=== PATIENT | female | born 1965 ===

== ENCOUNTER → 2020-12-29 10:37 | Outpatient (BNVA) | payer BC, SELFPAY | PROVIDERS: Family Provider Family Medicine; PCP Family Medicine; Visit Provider Internal Medicine | DX: R53.83 Other fatigue (principal); R63.5 Abnormal weight gain; M25.50 Pain in unspecified joint; Z11.59 Encounter for screening for other viral diseases; R79.82 Elevated C-reactive protein (CRP); Z68.36 Body mass index [BMI] 36.0-36.9, adult; B99.9 Unspecified infectious disease | CPT/HCPCS: 99204 ==

== ENCOUNTER 2020-12-29 12:20 | Outpatient (CLI) | payer BC, SELFPAY ==
--- NOTE | 2020-12-29 12:29 | XR_ITS ---
WS: [email or web address] Left hand, 2 views, 12/29/2020 Clinical Data: B99.9 - Unspecified infectious disease Comparison: None. Findings: No fractures or dislocations are seen. The soft tissues are unremarkable. The joint spaces are normal No periarticular demineralization or calcifications are seen. XR/XR hand LT 2V [id number] Impression: Negative left hand.
--- NOTE | 2020-12-29 12:29 | XR_ITS ---
WS: [email or web address] Right hand, 2 views, 12/29/2020 Clinical Data: B99.9 - Unspecified infectious disease Comparison: None. Findings: No fractures or dislocations are seen. The soft tissues are unremarkable. The joint space s are normal No periarticular demineralization or calcifications are seen XR/XR hand RT 2V [id number] Impression: Negative right hand.
--- NOTE | 2020-12-29 12:29 | XR_ITS ---
WS: [email or web address] Left hip, 2 views, 12/29/2020 Clinical Data: B99.9 - Unspecified infectious disease Comparison: None. Findings: No fractures or dislocations are seen. The left hip joint is intact. There is a small acetabular spur . The left hip shows no erosion, sclerosis, narrowing or cyst formation. The soft tissues are not rem arkable. The adjacent pelvis is normal. XR/XR hip LT 2-3V wo/w pel* [id number] Impression: Minimal osteoarthritis of the left hip. Tonnis classification: grade 1: sclerosis of femoral head and acetabulum or sli ght joint space narrowing or slight lipping at joint margins
--- NOTE | 2020-12-29 12:29 | XR_ITS ---
WS: [email or web address] Lumbar spine, 3 views, 12/29/2020 Clinical Data: B99.9 - Unspecified infectious disease Comparison: None. Findings: No compression fractures or subluxation is seen. No disc space narrowing is seen. The transverse proc esses and SI joints are normal. XR/XR lumbar spine 2-3V* [id number] Impression: Negative lumbar spine.
--- NOTE | 2020-12-29 12:29 | XR_ITS ---
WS: [email or web address] Lateral views of cervical spine in the flexion, extension and neutral positions. 12/29/2020 Clinical Data: B99.9 - Unspecified infectious disease Comparison: Cervical spine, 05/30/2009. Findings: No prevertebral soft tissue swelling is seen. There are no fractures. The C7 spinous process fracture has healed. The disc spaces are normal. No limitation of motion or subluxation on flexion or extensi on is seen. XR/XR cervical spine fl/ex [id number] Impression: 1. Negative lateral cervical spine. 2. Negative for limitation of motion or subluxation on flexion or extension.
--- NOTE | 2020-12-29 12:29 | XR_ITS ---
WS: [email or web address] Right hip, 2 views, 12/29/2020 Clinical Data: B99.9 - Unspecified infectious disease Comparison: None. Findings: No fractures or dislocations are seen. The right hip joint is intact. There is a small acetabular spu r. The right hip shows no erosion, sclerosis, narrowing or cyst formation. The soft tissues are not r emarkable. The adjacent pelvis is normal. XR/XR hip RT 2-3V wo/w pel* [id number] Impression: Minimal osteoarthritis of the right hip. Tonnis classification: grade 1: sclerosis of femoral head and acetabulum or sli ght joint space narrowing or slight lipping at joint margins
[2020-12-29 13:17] LABS: Basophils # 0.1 10^3/uL (0.0-0.1); Eosinophils # 0.1 10^3/uL (0.0-0.8); Eosinophils % 1.8 %; Hematocrit 43.8 % (37.0-47.0); Hemoglobin 14.8 g/dL (11.5-15.3); Lymphocytes # 2.8 10^3/uL (0.8-4.8); Mean Corpuscular HGB Conc 33.8 g/dL (30.0-36.0); Mean Corpuscular Hemoglobin 31.3 pg (28.0-34.0); Mean Corpuscular Volume 92.6 fl (81-99); Mean Platelet Volume 8.2 fL (7.4-10.4); Monocytes # 0.4 10^3/uL (0.2-0.9); Monocytes % 6.2 %; Neutrophils % 51.7 %; Nucleated Red Blood Cells % 0 %; Platelet Count 366 10^3/cmm (130-400); Red Blood Count 4.73 10^6/uL (4.1-5.3); Red Cell Distribution Width 12.9 % (12.1-15.1); White Blood Count 7.2 10^3/uL (4.0-10.0)
[2020-12-29 14:06] LABS: Alanine Aminotransferase 13 U/L (0-33); Albumin Level 4.2 g/dL (3.5-5.2); Alkaline Phosphatase 72 IU/L (35-105); Anion Gap 15.9 (5-19); Aspartate Amino Transferase 14 U/L (0-32); Blood Urea Nitrogen 19 mg/dL (6-20); Calcium 9.1 mg/dL (8.5-10.5); Carbon Dioxide 21 mmol/L (22-29); Chloride 99 mmol/L (98-107); Creatine Phosphokinase 64 U/L (26-192); Globulin 3.1 g/dL (1.3-4.6); Glomerular Filtration Rate 87.2 mL/min (90-130); Glucose 90 mg/dL (65-115); Osmolality Calculated 276 mOsm/kg (285-295); Potassium 3.9 mmol/L (3.5-5.1); Sodium 132 mmol/L (136-145); Thyroid Stimulating Hormone 2.41 uIU/mL (0.27-4.20); Total Bilirubin 0.6 mg/dL (0.15-1.2); Total Protein 7.3 g/dL (6.6-8.7)
[2020-12-29 14:22] LABS: Ferritin 108 ng/mL (15-150); Iron 61 ug/dL (37-145)
[2020-12-29 14:38] LABS: 25 Hydroxy Vitamin D 39 ng/mL (30-100); Vitamin B12 622 pg/mL (232-1245)
[2020-12-29 14:41] LABS: Cortisol Random 11.07 ug/dL (2.47-19.5); Hepatitis B Core AB, Total Non-Reactive (Nonreactive); Hepatitis B Surface Antigen Non-Reactive (Nonreactive); Hepatitis C Virus Antibody Non-Reactive (Nonreactive)
[2021-01-01 11:33] LABS: Erythrocyte Sedimentation Rate 9 mm/hr (0-15)
[2021-01-01 12:33] LABS: COMPLEMENT COMPONENT C3C 175 mg/dL (83-193); COMPLEMENT COMPONENT C4C 43 mg/dL (15-57)
[2021-01-01 12:58] LABS: COMPLEMENT, TOTAL (CH50) >60 U/mL (31-60)
[2021-01-01 13:48] LABS: Cyclic Citrullinated Peptide <16 UNITS
[2021-01-01 14:03] LABS: Immunoglobulin A 148 mg/dL (47-310)
[2021-01-01 14:33] LABS: ANA SCREEN, IFA NEGATIVE (NEGATIVE)
[2021-01-01 15:03] LABS: CENTROMERE B ANTIBODY <1.0 NEG AI (<1.0 NEG); JO-1 ANTIBODY <1.0 NEG AI (<1.0 NEG); RNP ANTIBODY <1.0 NEG AI (<1.0 NEG); SCL-70 ANTIBODY <1.0 NEG AI (<1.0 NEG); SJOGREN'S ANTIBODY (SS-A) <1.0 NEG AI (<1.0 NEG); SM ANTIBODY <1.0 NEG AI (<1.0 NEG); SS-B <1.0 NEG AI (<1.0 NEG)
[2021-01-01 15:56] LABS: THYROID PEROXIDASE ANTIBODIES 1 IU/mL (<9)
[2021-01-03 15:12] LABS: DNA AB (DS) CRITHIDIA,IFA NEGATIVE (NEGATIVE)
== END 2020-12-29 12:21 | disposition home or self-care (01) ==
LOC: LAB 12:28
PROVIDERS: PCP Nurse Practitioner Family; Visit Provider Internal Medicine
DX: B99.9 Unspecified infectious disease (principal); M25.50 Pain in unspecified joint; R53.83 Other fatigue; R63.5 Abnormal weight gain; R79.82 Elevated C-reactive protein (CRP); M16.0 Bilateral primary osteoarthritis of hip
CPT/HCPCS: 36415; 72040; 72100; 73120; 73502; 80053; 82306; 82533; 82550; 82607; 82728; 82784; 83516; 83540; 84443; 85025; 85651; 86160; 86162; 86200; 86235; 86255; 86376; 86431; 86704; 86803; 87340

== ENCOUNTER → 2021-01-15 14:29 | Outpatient (BNVA) | payer BC, SELFPAY | PROVIDERS: PCP Nurse Practitioner Family; Visit Provider Internal Medicine | DX: M79.10 Myalgia, unspecified site (principal); R53.83 Other fatigue; M25.50 Pain in unspecified joint; R79.82 Elevated C-reactive protein (CRP); B99.9 Unspecified infectious disease; Z79.899 Other long term (current) drug therapy; R63.5 Abnormal weight gain; Z68.37 Body mass index [BMI] 37.0-37.9, adult | CPT/HCPCS: 36415; 83516; 86617; 99214 ==